=== PATIENT | male | born 1995 | race Caucasian/White ===

== ENCOUNTER 2024-05-09 05:17 | Observation (INO) | payer OTHER, SELFPAY ==
[2024-05-08 20:15] VITALS: BP 130/83
[2024-05-08 20:43] LABS: % Basophils 0.3 % (0-2); % Eosinophils 0.5 % (0-6); % Immature Granulocytes 0.6 % (0-0.5); % Lymphocytes 13.7 % (20.5-51.1); % Monocytes 6.7 % (1.7-9.3); % Neutrophils 78.2 % (42.2-75.2); Absolute Eosinophils 0.1 10^3/uL (0-0.7); Absolute Immature Granulocytes 0.1 10^3/uL (0-0.05); Absolute Lymphocytes 1.6 10^3/uL (1.2-3.4); Absolute Monocytes 0.8 10^3/uL (0.1-0.6); Absolute Neutrophils 8.9 10^3/uL (1.4-6.5); Hemoglobin 13.4 g/dL (13.0-18.0); Mean Corp Hgb Conc. 34.4 g/dL (33.0-37.0); Mean Corpuscular Hgb 29.5 pg (27.0-31.0); Mean Corpuscular Volume 85.9 fL (80.0-94.0); Mean Platelet Volume 11.3 fL (7.4-10.4); Nucleated Red Blood Cells % 0 % (-); Platelet Count 326 10^3/uL (130-400); Red Blood Cell Count 4.54 10^6/uL (4.70-6.10); Red Cell Dist. Width 12.4 % (11.5-14.5); White Blood Cell Count 11.4 10^3/uL (4.8-10.8)
[2024-05-08 21:00] LABS: ALT (SGPT) 73 U/L (0-50); AST (SGOT) 47 U/L (17-59); Albumin 4.7 g/dl (3.5-5.0); Alkaline Phosphatase 193 U/L (38-126); Blood Urea Nitrogen 18 mg/dl (9-20); Calcium 9.6 mg/dl (8.4-10.2); Carbon Dioxide 24 mmol/L (22-30); Chloride 100 mmol/L (98-107); Glucose 107 mg/dl (70-99); Potassium 4.2 mmol/L (3.5-5.1); Sodium 138 mmol/L (135-145); Total Bilirubin 1.2 mg/dl (0.2-1.3); Total Protein 7.7 g/dl (6.3-8.2); eGFR > 60.00
[2024-05-08 21:06] LABS: NT-proBNP 48.2 pg/ml
[2024-05-09 01:08] VITALS: BP 142/90; BMI 19.3
--- NOTE | 2024-05-09 01:47 | ED.GENMED ---
History of Present Illness
<Dawson Mendoza Jr., PA-C - Last Filed: 05/09/24 18:09>
General
Chief Complaint: Swelling
Source: patient and spouse
Exam Limitations: none
Time Seen by Provider: 05/09/24 01:22
Nursing documentation reviewed up to this point in time: agreed with
History of Present Illness
History of Present Illness:
28-year-old male past medical history of asthma presenting to the emergency department today with concerns of swelling redness warmth of the lower extremities bilaterally over the past few days seemingly worsening. Also has had some night sweats
over the last 2 weeks. Initially had what seemed to be a viral syndrome 2 weeks ago that seem to improve. Denies any chest pain shortness of breath does have some leg pain. Denies similar symptoms in the past. Did take some Motrin last week
denies any ongoing medication use. Denies any alcohol use
Review of Systems
<Dawson Mendoza Jr., PA-C - Last Filed: 05/09/24 18:09>
Review of Systems
Allergies reviewed?: Yes
All Other Systems: ROS reviewed and negative except as documented in HPI and ROS
Phy Exam
<Dawson Mendoza Jr., PA-C - Last Filed: 05/09/24 18:09>
Physical Exam
Physical Exam:
GENERAL: Alert , in no apparent distress
EYE: pupils equal and reactive
NECK: Supple, no significant adenopathy.
ENT: o/p clr, mmm.
CARDIAC: Regular rate and rhythm .
LUNGS: Clear breath sounds bilaterally, no acute respiratory distress, no wheezes/rales/rhonchi
ABDOMEN: Soft, without focal tenderness, no r/g, no cvat
NEUROLOGICAL: Alert and oriented, no focal neuro deficits
SKIN: Raised patches of red with some dark discoloration centrally bilaterally. Mild tenderness or induration does not cross the joint no changes in joint movement. Warm and dry, skin intact.
MUSCULOSKELETAL: No edema, well perfused.
PSYCH: Normal and appropriate interaction.
Sepsis
<Dawson Mendoza Jr., PA-C - Last Filed: 05/09/24 18:09>
Sepsis Screening
Sepsis Assessment: Sepsis Ruled Out
Sepsis Screen
Sepsis Screen: Sepsis Ruled Out
Date: 05/09/24
Time: 18:09
Course
<Dawson Mendoza Jr., PA-C - Last Filed: 05/09/24 18:09>
Orders/Labs/Results
Orders:
Orders
05/08/24 20:34
BNP [NT-proBNP] Urgent
CBC/With Diff [Complete Blood Count/With Diff] Urgent
CMP [Comprehensive Metabolic Panel] Urgent
Erythrocyte Sed Rate Urgent
Comment: ADD ON
05/09/24 02:07
Add On- LAB Urgent
Tests Added?: esr crp lyme progressive
Venous Doppler Lwr Ext Bilat [US Periph Venous LOWER Ext Kishor] Urgent
Comment:
Reason For Exam: leg swelling
05/09/24 02:08
CeFAZolin 1 GRAM [Ancef] 1 gram in 5 ml IV NOW
05/09/24 02:10
Lyme Progressive Urgent
Comment: ADD ON
05/09/24 02:12
CeFAZolin 1 GRAM [Ancef] 1 gram in 5 ml IV NOW
05/09/24 02:28
C-Reactive Protein Urgent
Comment: ADD ON
COVID-19 Antigen Urgent
Source: Nasal Swab
Monotest Urgent
Urinalysis Reflex To Culture Urgent
Date Specimen was Collected: 05/09/24
Time Specimen was Collected: 02:14
Blood Culture Q30M
FARA Source: Blood/Venous
Specimen Description:
Blood Culture Q30M
FARA Source: Blood/Venous
Specimen Description:
Influenza A+B Rapid Molecular Urgent
FARA Source: Nasal Swab
Specimen Description:
Rapid Strep Group A Urgent
FARA Source: Throat/Pharynx
Specimen Description:
Date Specimen was Collected: 05/09/24
Time Specimen was Collected: 02:13
05/09/24 04:47
Admit/Transfer Patient As Directed
Co-Sign Provider:
Level of Care: Observation services
Assign to:: Medical/Surgical
Physician / Group: hospitalist
Diagnosis: rash
PRN Pain Medication Management As Directed
May give lesser potent ordered pain med per pt: Yes
preference::
Protocol:: Medication orders for pain may be administered in a
manner that supports deferring to patient preference
when the pt is:
- Requesting an ordered lesser potent pain medication.
Least to most potent pain medications are defined
as: acetaminophen < NSAID < tramadol < opioids
(morphine, oxycodone, hydromorphone).
- Requesting a lesser dose of the same medication IF
ORDERED.
- Requesting a less intrusive route of administration
if both routes are prescribed by the provider (PO <
IV).
05/09/24 04:48
Code Status As Directed
Resuscitation Status: Full Code
05/09/24 05:20
Acetaminophen [Tylenol] 650 mg PO Q4HPRN PRN
Diphenhydramine [Benadryl] 25 mg IV Q4HPRN PRN
Ondansetron Injectable [Zofran] 4 mg IV Q6HPRN PRN
05/09/24 05:20
Consult Notification Routine
Specialty to Notify: Infectious Disease
Date consulting provider notified: 05/09/24
Time consulting provider notified: 11:18
Notified:: Provider
INFECTIOUS DISEASE CONSULT Routine
Consulting Provider: Wankewicz,Trang
Was physician already notified: No
Reason for consult: cellulitis, rash
Activity As Directed
Activity Level: With Assistance
Pneumatic Compression Sleeves As Directed
Type: Knee high
Vital Signs As Directed
Frequency: Per unit guidelines
Pulse Ox/spot Check [RESP] Routine
Quantity: 1
DX Deep Vein Thrombosis Video Routine
05/09/24 05:27
JUNE, IgG Reflex to HEp-2 [S] IN AM
Complete Blood Count/No Diff IN AM
Hepatitis A IgM Antibody IN AM
Hepatitis B Core Ab, IgM IN AM
Hepatitis B Surface Antibody IN AM
Hepatitis B Surface Antigen IN AM
Hepatitis C Antibody IN AM
Rheumatoid Factor [Rheumatoid Agglutinin] IN AM
05/09/24 Breakfast
Regular
At Your Request: Full Participation
Does patient need a safe tray?: No
Flush (0.9% Sodium Chloride) [Flush (Nss)] See Dose Instructions IV PER PROTOCOL
Abnormal Lab Results
05/08/24 05/09/24
20:34 02:28
WBC 11.4 H 10^3/uL
(4.8-10.8)
RBC 4.54 L 10^6/uL
(4.70-6.10)
MPV 11.3 H fL
(7.4-10.4)
Abs Immat Gran (auto) 0.1 H 10^3/uL
(0-0.05)
Absolute Neuts (auto) 8.9 H 10^3/uL
(1.4-6.5)
Absolute Monos (auto) 0.8 H 10^3/uL
(0.1-0.6)
Immature Gran % 0.6 H %
(0-0.5)
Neutrophils % 78.2 H %
(42.2-75.2)
Lymphocytes % 13.7 L %
(20.5-51.1)
ESR 72 H mm/hour
(0-20)
Glucose 107 H mg/dl
(70-99)
ALT 73 H U/L
(0-50)
Alkaline Phosphatase 193 H U/L
(38-126)
C-Reactive Protein 144.70 H mg/L
(0.0-10.00)
05/08/24 20:34
05/08/24 20:34
Vital Signs
Initial and Last Documented VS:
Initial Vital Signs
Temp Pulse Resp BP Pulse Ox
98.8 F 116 16 130/83 98
05/08/24 20:15 05/08/24 20:15 05/08/24 20:15 05/08/24 20:15 05/08/24 20:15
Last Documented Vital Signs
Temp Pulse Resp BP Pulse Ox
98.1 F 89 17 122/74 99
05/09/24 14:18 05/09/24 14:18 05/09/24 14:18 05/09/24 14:18 05/09/24 14:18
<Abdi Sebastian MD - Last Filed: 05/09/24 02:26>
Orders/Labs/Results
Orders:
Orders
05/08/24 20:34
BNP [NT-proBNP] Urgent
CBC/With Diff [Complete Blood Count/With Diff] Urgent
CMP [Comprehensive Metabolic Panel] Urgent
Erythrocyte Sed Rate Urgent
Comment: ADD ON
05/09/24 02:07
Add On- LAB Urgent
Tests Added?: esr crp lyme progressive
Venous Doppler Lwr Ext Bilat [US Periph Venous LOWER Ext Kishor] Urgent
Comment:
Reason For Exam: leg swelling
05/09/24 02:08
CeFAZolin 1 GRAM [Ancef] 1 gram in 5 ml IV NOW
05/09/24 02:10
Lyme Progressive Urgent
Comment: ADD ON
05/09/24 02:12
CeFAZolin 1 GRAM [Ancef] 1 gram in 5 ml IV NOW
05/09/24 02:28
C-Reactive Protein Urgent
Comment: ADD ON
COVID-19 Antigen Urgent
Source: Nasal Swab
Monotest Urgent
Urinalysis Reflex To Culture Urgent
Date Specimen was Collected: 05/09/24
Time Specimen was Collected: 02:14
Blood Culture Q30M
FARA Source: Blood/Venous
Specimen Description:
Blood Culture Q30M
FARA Source: Blood/Venous
Specimen Description:
Influenza A+B Rapid Molecular Urgent
FARA Source: Nasal Swab
Specimen Description:
Rapid Strep Group A Urgent
FARA Source: Throat/Pharynx
Specimen Description:
Date Specimen was Collected: 05/09/24
Time Specimen was Collected: 02:13
05/09/24 04:47
Admit/Transfer Patient As Directed
Co-Sign Provider:
Level of Care: Observation services
Assign to:: Medical/Surgical
Physician / Group: hospitalist
Diagnosis: rash
PRN Pain Medication Management As Directed
May give lesser potent ordered pain med per pt: Yes
preference::
Protocol:: Medication orders for pain may be administered in a
manner that supports deferring to patient preference
when the pt is:
- Requesting an ordered lesser potent pain medication.
Least to most potent pain medications are defined
as: acetaminophen < NSAID < tramadol < opioids
(morphine, oxycodone, hydromorphone).
- Requesting a lesser dose of the same medication IF
ORDERED.
- Requesting a less intrusive route of administration
if both routes are prescribed by the provider (PO <
IV).
05/09/24 04:48
Code Status As Directed
Resuscitation Status: Full Code
05/09/24 05:20
Acetaminophen [Tylenol] 650 mg PO Q4HPRN PRN
Diphenhydramine [Benadryl] 25 mg IV Q4HPRN PRN
Ondansetron Injectable [Zofran] 4 mg IV Q6HPRN PRN
05/09/24 05:20
Consult Notification Routine
Specialty to Notify: Infectious Disease
Date consulting provider notified: 05/09/24
Time consulting provider notified: 11:18
Notified:: Provider
INFECTIOUS DISEASE CONSULT Routine
Consulting Provider: Trang Fortune
Was physician already notified: No
Reason for consult: cellulitis, rash
Activity As Directed
Activity Level: With Assistance
Pneumatic Compression Sleeves As Directed
Type: Knee high
Vital Signs As Directed
Frequency: Per unit guidelines
Pulse Ox/spot Check [RESP] Routine
Quantity: 1
DX Deep Vein Thrombosis Video Routine
05/09/24 05:27
JUNE, IgG Reflex to HEp-2 [S] IN AM
Complete Blood Count/No Diff IN AM
Hepatitis A IgM Antibody IN AM
Hepatitis B Core Ab, IgM IN AM
Hepatitis B Surface Antibody IN AM
Hepatitis B Surface Antigen IN AM
Hepatitis C Antibody IN AM
Rheumatoid Factor [Rheumatoid Agglutinin] IN AM
05/09/24 Breakfast
Regular
At Your Request: Full Participation
Does patient need a safe tray?: No
Flush (0.9% Sodium Chloride) [Flush (Nss)] See Dose Instructions IV PER PROTOCOL
Abnormal Lab Results
05/08/24 05/09/24
20:34 02:28
WBC 11.4 H 10^3/uL
(4.8-10.8)
RBC 4.54 L 10^6/uL
(4.70-6.10)
MPV 11.3 H fL
(7.4-10.4)
Abs Immat Gran (auto) 0.1 H 10^3/uL
(0-0.05)
Absolute Neuts (auto) 8.9 H 10^3/uL
(1.4-6.5)
Absolute Monos (auto) 0.8 H 10^3/uL
(0.1-0.6)
Immature Gran % 0.6 H %
(0-0.5)
Neutrophils % 78.2 H %
(42.2-75.2)
Lymphocytes % 13.7 L %
(20.5-51.1)
ESR 72 H mm/hour
(0-20)
Glucose 107 H mg/dl
(70-99)
ALT 73 H U/L
(0-50)
Alkaline Phosphatase 193 H U/L
(38-126)
C-Reactive Protein 144.70 H mg/L
(0.0-10.00)
05/08/24 20:34
05/08/24 20:34
Vital Signs
Initial and Last Documented VS:
Initial Vital Signs
Temp Pulse Resp BP Pulse Ox
98.8 F 116 16 130/83 98
05/08/24 20:15 05/08/24 20:15 05/08/24 20:15 05/08/24 20:15 05/08/24 20:15
Last Documented Vital Signs
Temp Pulse Resp BP Pulse Ox
98.1 F 89 17 122/74 99
05/09/24 14:18 05/09/24 14:18 05/09/24 14:18 05/09/24 14:18 05/09/24 14:18
<Dawson Mendoza Jr., VINCENTC - Last Filed: 05/09/24 18:09>
MDM/Problems Addressed
MDM/Problems Addressed:
28-year-old male presenting to the emergency department with concerns of worsening rash to lower extremities. Had what was described as potential viral syndrome last week. On arrival here initially tachycardic but improving without specific
treatment. Slight white count on labs normal platelet count other labs without emergent findings. Unclear etiology of symptoms. Patient does have a warm red rash there was some degree of concern of infection was given dose of Ancef. Case seen by
attending physician recommending additional infectious disease evaluation and infectious disease consultation. Plan to admit for further assessment and monitoring.
<Dawson Mendoza Jr., PA-C - Last Filed: 05/09/24 18:09>
*Critical Care Note
Total Time (30-74mins, 75-104mins- exclusive of procedures): Not Applicable
<Abdi Sebastian MD - Last Filed: 05/09/24 02:26>
Update Note
Update Note:
ED Attending Note
<Dawson Mendoza Jr., PA-C - Last Filed: 05/09/24 18:09>
-
Portions of this chart may have been created with voice recognition software.� Occasional wrong word or��sound alike� substitutions may have occurred due to the inherent limitations of voice recognition software.
<Abdi Sebastian MD - Last Filed: 05/09/24 02:26>
ED Attending Note
Patient seen and examined by attending physician: Yes
ED Attending Note:
I have seen and evaluated the patient with a [id number] encounter. I have spoken to the advance practicer provider and involved in the medical history, the physical exam, medical decision making.
Evaluation and management service: agree unless noted differently below.
Results interpretation: agree unless noted differently below.
Focused HPI: 28-year-old male no significant chronic medical issues presents for evaluation of fevers and night sweats, swelling and discomfort in the legs as well as rash on the legs. Patient says that he has been having subjective fever and
chills, night sweats for 2 weeks. He says that last week he was managing with ibuprofen but towards the end of the week last week he started to develop swelling in the legs and he thought it could be related to ibuprofen and so he discontinued
this. He says he did have some mild URI symptoms to start last week. No cough, shortness of breath. No urinary symptoms. No GI symptoms. He says that over the past day or 2 started to develop a rash�dark spots purpleish red on palms,
shins/thighs bilaterally. Came to the emergency room for assessment. No recent bug bites. No recent travel. No new medications�only medication recently has been ibuprofen.
Physical exam: Awake alert not in distress. Tachycardic otherwise normal vitals�notably afebrile here. No cardiac rubs, gallops, murmurs. Lungs clear to auscultation bilaterally. TMs are clear bilaterally. No oral lesions, moist mucous
membranes, no erythema or exudate in the posterior oropharynx. His abdomen is nontender. On exam of his legs he has dark purpleish red patches scattered on anterior velazquez and thighs bilaterally; there is an area of confluent erythema and warmth,
tenderness as well as edema in the left ankle. He has some macules on the palms bilaterally, no spots on the soles of the feet noted. No involvement of the face, neck, torso. No wounds, scrapes, lacerations appreciated on skin exam. See attached
picture.
Medical Decision Makin-year-old male presents with rash, fever and night sweats for 2 weeks as described above. Vitals and exam as above. Differential would include vasculitis, postviral rash, erythema nodosum/multiforme, tickborne illness,
cellulitis. His labs show no signs of thrombocytopenia, marginal leukocytosis 11.4. CMP no clinically significant abnormalities. Will send test for tickborne illness, inflammatory markers, Monospot, COVID, flu. Check ultrasound of the leg given
asymmetric swelling and confluent erythema in the left side. Will plan to likely admit for ID consultation given persistent fevers and night sweats x 2 weeks.
Discharge Plan
Departure
Patient Disposition: Admit
Date of Disposition: 05/09/24
Time of Disposition: 02:50
Admit to: Med/Surg
Admit to doctor: Kayla
Presentation/result/management discussed w/ accepting MD/DO: Hospitalist
Patient with high blood pressure during this ER visit?: No
Condition: Good
Covid-19: Not Applicable
Discharge Problem:
Rash
Interventions
Interventions:
*Risk Screen - Suicide Last Done: 05/08/24 20:15
*General Assessment Last Done: 05/09/24 12:00
*Neglect/Abuse Screening Last Done: 05/08/24 20:15
*ED- Fall Risk Assessment Last Done: 05/09/24 01:57
*ED COVID-19 Vaccine History Last Done: 05/09/24 12:33
*Nursing Disposition Last Done: 05/09/24 12:00
ED- Cardiac Assessment Last Done: 05/09/24 01:19
ED- Pulmonary Assessment Last Done: 05/09/24 01:19
ED-Skin Assessment Last Done: 05/09/24 01:19
Discharge Date and Time
Discharge Date/Time: 05/09/24 12:01
[2024-05-09] MEDS: ANCEF 5 IV (02:48)
[2024-05-09 03:00] LABS: Urine Bilirubin Negative (Negative); Urine Character Clear (Clear); Urine Color Yellow; Urine Glucose Negative (Negative); Urine Ketone Negative (Negative); Urine Leukocyte Negative (Negative); Urine Nitrite Negative (Negative); Urine Occult Blood Negative (Negative); Urine Urobilinogen Negative (Neg - 1+)
[2024-05-09 03:04] LABS: COVID-19 Antigen Negative (Negative); Monotest Negative (Negative)
[2024-05-09 03:13] LABS: Urine Albumin Trace (Neg - Trace)
[2024-05-09 03:26] LABS: Erythrocyte Sed Rate 72 mm/hour (0-20)
--- NOTE | 2024-05-09 04:28 | HPS.HSE ---
Family Physician
-
Family Physician: * NONE
Chief Complaint
-
Leg redness and swelling
History of Present Illness
This is a 28-year-old male without any known significant past medical history who presents to the emergency department with lower extremity rash.
Patient reported that about 1 week ago he developed swelling and some pain in his bilateral ankles. He was doing some squats before onset of the symptoms. However after development of the swelling around the ankles he started having intermittent
fevers and night sweats for a few days. He then started taking room ibuprofen. He took the ibuprofen continuously for about 3 or 4 days. He defervesced but during this. He started noticing increasing redness in his lower extremities bilaterally.
There was redness around the ankle as well as spots throughout his legs up to his thighs bilaterally. He denies any rash on his trunk or arms or face. He denies any tenderness to these lesions. He denies any pruritus. He denies taking any other
medications. He denies any ingestions. He denies any pain in his other joints besides the ankle. Patient denies any nausea or vomiting. He denies feeling dizzy or lightheaded. He denies any urinary symptoms including dysuria or hematuria. No
history of STDs. He denies any insect exposures.
In the emergency department he was afebrile, blood pressure was 140/90 with a pulse of 106. CBC notable for white count of 11.4 but otherwise unremarkable. Electrolytes BUN/creatinine were all within the normal range. Ultrasound of the lower
extremity was negative for DVT. He did have mild elevations in ALT to 73 and alk phos . COVID was negative, influenza was negative, inflammatory markers ESR was 72 and CRP 144.
Medical History
Past Medical History
Past Medical History: Reports None
Past Surgical History: Reports None
Social History
Tobacco: Non-smoker
Alcohol: Occasional
Drug: None
Employment: Employed
Family History
Family History: Not pertinent
Allergies / Home Medications
Allergies reflects when Allergies were last updated in [facility].
Home Medications with original date entered in [facility]
Allergy/Medication List:
Allergies
Allergy/AdvReac Type Severity Reaction Status Date / Time
No Known Allergies Allergy Verified 05/09/24 01:08
Home Medications
No Meds [No Current Medications] 05/09/24
Review of Systems
-
Constitutional: Reports No Symptoms
EENT: Reports No Symptoms
Respiratory: Reports No Symptoms
Cardiac: Reports No Symptoms
: Reports No Symptoms
Musculoskeletal: Reports Joint Pain and Joint Swelling
Skin: Reports Rash
Neurological: Reports No Symptoms
Endocrine: Reports No Symptoms
Hematologic/Lymphatic: Reports No Symptoms
Psych: Reports No Symptoms
Physical Exam
Vital Signs
Vital Signs
Temp Pulse Resp BP Pulse Ox
98.5 F 106 16 142/90 99
05/09/24 01:08 05/09/24 01:08 05/09/24 03:36 05/09/24 01:08 05/09/24 01:08
Physical Exam
General: Well Developed, Well Nourished, No Apparent Distress and Comfortable
HEENT: NormoCephalic, Anicteric, Moist mucous membranes and Atraumatic
Respiratory: Clear
Cardiac: S1/S2 and Regular Rhythm
GI: Soft, Non Tender and Non Distended
Rectal: Deferred by Provider
Genito-urinary: Deferred by me
Musculoskeletal: No Clubbing, No Cyanosis and No Edema
Skin: Rash (blanching erythematous patches around the ankles bilaterally, mulitiple circular macular nodules in the legs bilaterally)
Neuro: AO x 3 and Nonfocal/grossly intact
Hematologic/Lymphatic: No Lymphadenopathy
Psych: Calm
Laboratory Results
-
05/08/24 20:34
05/08/24 20:34
Laboratory Results
Total Bilirubin 1.2 mg/dl (0.2-1.3) 05/08/24 20:34
AST 47 U/L (17-59) 05/08/24 20:34
ALT 73 U/L (0-50) H 05/08/24 20:34
Alkaline Phosphatase 193 U/L (38-126) H 05/08/24 20:34
Data Reviewed
-
Lab Data: Labs Reviewed by me
Old Records: Reviewed
Impression/Plan
-
IMPRESSION:
28 y.o w/o past medical history here with episdoe of nightsweats and fevers followed by a non-pruritic erythematous macular spots of about 1 cm diameters in the lower extremities. Mild ankle swelling but no other joint findings. No pruritus. Labs
notable for elevated inflammatory markers. U/A is negative for blood. Negative strep throat. Negative covid/flu. Lyme pending. Currently afebrile, hemodynamically stable and well appearing. Given abx in ED for possible cellulitis and request
admission for ID eval.
PLAN:
Rash -suspect this is either drug eruption or erythema multiforme (no target lesions seen) secondary to NSAIDs. Unlikely SJS. No mucosal lesions, HD stable. Most common drug associated with EM are NSAIDs. Noted to have slight elevation in LFTs.
- admit to med/surg obs
- hold abx for now
- blood cultures and lyme titers pending
- check acute hepatitis panel
- consider skin biopsy
- ID consultation
- prn benadryl for itching
- given elevated esr/crp, check RF, JUNE
DVT PPX - SCDs
Code Status - Full Code
[2024-05-09 05:45] LABS: Hematocrit 34.2 % (39.0-52.0); Hemoglobin 11.8 g/dL (13.0-18.0); Mean Corp Hgb Conc. 34.5 g/dL (33.0-37.0); Mean Corpuscular Hgb 29.6 pg (27.0-31.0); Mean Corpuscular Volume 85.7 fL (80.0-94.0); Mean Platelet Volume 11.4 fL (7.4-10.4); Platelet Count 300 10^3/uL (130-400); Red Blood Cell Count 3.99 10^6/uL (4.70-6.10); Red Cell Dist. Width 12.4 % (11.5-14.5); White Blood Cell Count 9.7 10^3/uL (4.8-10.8)
[2024-05-09 06:05] LABS: ALT (SGPT) 70 U/L (0-50); AST (SGOT) 45 U/L (17-59); Alkaline Phosphatase 171 U/L (38-126); Blood Urea Nitrogen 18 mg/dl (9-20); Calcium 9.6 mg/dl (8.4-10.2); Carbon Dioxide 25 mmol/L (22-30); Chloride 101 mmol/L (98-107); Direct Bilirubin 0.2 mg/dl (0.0-0.4); Estimated Creatinine Clearance 99 ml/min; Glucose 111 mg/dl (70-99); Potassium 3.7 mmol/L (3.5-5.1); Sodium 138 mmol/L (135-145); Total Protein 6.7 g/dl (6.3-8.2); eGFR > 60.00
[2024-05-09 06:34] LABS: Hepatitis B Surface Antigen Negative (Negative)
[2024-05-09 06:40] LABS: Hepatitis A IgM Antibody Negative (Negative); Hepatitis B Core Ab, IgM Negative (Negative)
[2024-05-09 06:52] LABS: Hepatitis B Surface Antibody Positive; Hepatitis C Antibody Negative (Negative)
--- NOTE | 2024-05-09 11:43 | CON.ID ---
Consultation
-
Date/Time Consultation Requested: 05/09/24 5:20
Date/Time Consultation Performed: 05/09/24 11:44
Requesting Provider: Dr Garza
Performing Provider: Dr Fortune
Reason for Consultation: cellulitis, rash
Chief Complaint / Past History
Chief Complaint
Leg redness and swelling
History of Present Illness
Mr Maurice is a 28 year old male without significant past medical history who presented here late last night for about a 1 week history of swelling and pain in the bilateral ankles, which progressed to several days of fevers and night sweats, he began
taking ibuprofen and then redness in the distal then later proximal lower extremities, there are also lesions on the palms. Rash is not tender or pruritic. Rash does not involve the trunk. No OTC medications. No nausea, vomiting, dizziness,
dysuira or history of STIs. No insect bites. They both have extensive contact with small children through their extended family. Has been monogamous for at least 6 years.
In the ER he was afebrile, bp 140/90, HR 106, WBC 11.4 initially today 9.7, hgb 11.8, plt 300, L shift was noted, eos remained present, cr 1.0, crp 144, t bili 1.0, ast 45, alt 70, alk phos 171, ua no pyuria, RF and JUNE were sent and are in
progress, covid negative, viral hep screen consistent with vaccination for hep B, lyme serology also sent in progress, abd US: no cholelithiasis, peripheral vascular US: no DVT, blood cultures x2 are in progress, influenza neg, strep screen
negative.
Patient reports that since admission his rash is notably less erythematous. Not tender. Ankle pain improving.
Past History
Past Medical History: None
Past Surgical History: None
Allergy History:
No Known Allergies Allergy (Verified 05/09/24 01:08)
Medications Reviewed: Yes
Social History
Tobacco: Non-Smoker
Alcohol: Occasional
Drug: None
Family History
Family History: Not Pertinent
Review of Systems
Review of Systems
General: Negative Fever or Chills
All systems: All other systems were reviewed and were negative
Vital Signs
Temp Pulse Resp BP Pulse Ox
98.5 F 106 18 142/90 99
05/09/24 01:08 05/09/24 01:08 05/09/24 05:34 05/09/24 01:08 05/09/24 05:34
Physical Exam
Physical Exam
Constitutional: No Acute Distress
Cardiovascular: Regular Rate and S1/S2; Negative Murmur or Rub
Pulmonary: Clear and Symmetric; Negative Wheezes, Rales or Rhonchi
Gastrointestinal: Soft, Non Tender, Non Distended and Normal Bowel Sounds
Skin: Warm, Dry and Rash (blanching, macular rash including the palms and lower extremites); Negative Jaundice
Lab / Diagnostic Study Results
05/09/24 05:27
05/09/24 05:27
Abs Immat Gran (auto) 0.1 10^3/uL (0-0.05) H 05/08/24 20:34
Absolute Neuts (auto) 8.9 10^3/uL (1.4-6.5) H 05/08/24 20:34
Absolute Lymphs (auto) 1.6 10^3/uL (1.2-3.4) 05/08/24 20:34
Absolute Monos (auto) 0.8 10^3/uL (0.1-0.6) H 05/08/24 20:34
Absolute Basos (auto) 0.0 10^3/uL (0-0.2) 05/08/24 20:34
Immature Gran % 0.6 % (0-0.5) H 05/08/24 20:34
Neutrophils % 78.2 % (42.2-75.2) H 05/08/24 20:34
Lymphocytes % 13.7 % (20.5-51.1) L 05/08/24 20:34
Monocytes % 6.7 % (1.7-9.3) 05/08/24 20:34
Eosinophils % 0.5 % (0-6) 05/08/24 20:34
Basophils % 0.3 % (0-2) 05/08/24 20:34
ESR 72 mm/hour (0-20) H 05/08/24 20:34
C-Reactive Protein 144.70 mg/L (0.0-10.00) H 05/09/24 02:28
Microbiology Results
Micro:
05/09/24 02:28 Influenza Types A & B (MICHAEL) - Final
Nasal Swab Negative for Influenza A & B, NAAT
Negative results must be combined with clinical observations
and patient history.
Nucleic Acid Amplification test (NAAT)performed on the
[employer] platform.
05/09/24 02:28 Streptococcus Screen ([facility]ARA) - Pending
Throat/Pharynx Streptococcus Rapid Screen - Final
Rapid Strep Screen (Group A) Negative
05/09/24 02:28 Blood Culture - Pending
Blood/Venous
05/09/24 02:28 Blood Culture - Pending
Blood/Venous
Assessment / Plan
Blanching Macular Rash with palmar involvement
- agree erythema multiforme on the differential - could be related to recent ibuprofen
- syphilis - screen ordered
- HIV screen
- gc/chlamydia on the urine
- blood cultures x2 are in progress
- lyme screen in progress
- given that rash blanches unlikely RMSF
- serologies c/w previous vaccination to hep B
- RF and JUNE pending
- viral syndromes such as parvovirus, cocksackie virus also possible, management would be supportive
- do not recommend antibiotics at this time, I will follow up the pending labs that I ordered
- follow up with PCP and/or dermatology
[2024-05-09 12:17] VITALS: BP 120/76
[2024-05-09 12:53] VITALS: BMI 19.0
--- NOTE | 2024-05-09 12:59 | TRANSFER ---
Pt arrives from [facility], walked over onto hospital bed. pt aaox3, vss, spouse accompanying pt. pt reports eating lunch already. pt oriented to unit, admission and assessment completed. call alfonso in reach. plan of care continues to be followed.
--- NOTE | 2024-05-09 14:12 | W.DCSUMMARY ---
Discharge Summary
Discharge Data
Date of Admission: 05/09/24
Date of Discharge: 05/09/24
-
Pending Results: Yes
Additional Pending Results:
STD testing
Hospital Course
Presented with bilateral lower extremity atypical rash that was described as pressure-like sensation when the rash pops up in a new area. Initially started off in the ankles then spread approximately. Now also affecting the palms in the arms.
Initially provided IV antibiotics in the ED. Was evaluated by infectious disease who did not believe antibiotics were required. Pictures were sent to dermatology which recommended to initiate prednisone 40 to 60 mg daily until seen in the office.
Office visit with dermatology has been set up on May 12. If worsening or changes in manifestations and return to the hospital or call on-call dermatology for further recommendations and advice.
Seen and examined the day of discharge. No new complaints. No acute overnight events.
NAD
Scleral Anicteric, corrective lens
MMM
No JVD
CTABL
RRR, S1/S2
Soft, NT, ND, BS+
Warm, Dry
Bilateral lower extremity demonstrating diffuse nonblanching erythematic slightly raised lesions without scaling drainage additionally also note on bilateral palms and forearms, worse over the left ankle
AAOx3
Calm
Discharge Plan
-
Patient Disposition: Home (Routine Discharge)
Discharge Diagnosis/Procedures: Atypical rash
Condition: Good
Diet: As tolerated
Activity: As tolerated
Activity Restrictions/Additional Instructions:
Presented with bilateral lower extremity atypical rash that was described as pressure-like sensation when the rash pops up in a new area. Initially started off in the ankles then spread approximately. Now also affecting the palms in the arms.
Initially provided IV antibiotics in the ED. Was evaluated by infectious disease who did not believe antibiotics were required. Pictures were sent to dermatology which recommended to initiate prednisone 40 to 60 mg daily until seen in the office.
Office visit with dermatology has been set up on May 12. If worsening or changes in manifestations and return to the hospital or call on-call dermatology for further recommendations and advice.
Additionally, noted a slight increase in liver function. [place] negative, hepatitis negative.
Abdominal ultrasound
IMPRESSION:
There is no sonographic evidence of cholelithiasis, acute cholecystitis or biliary duct dilation.
Stand Alone Forms: Return to Work
Referrals:
NONE,* [Family Provider] -
Colette Sierra MD [Consulting Staff] - 05/12/24
Prescriptions:
New
prednisone 50 mg tablet
50 mg PO DAILY 5 Days Qty: 5 0RF
Discharge Orders:
Discharge Patient (As Directed); Ordered 05/09/24
Ordered By: Lico Garcia
Discharge Date and Time
Print Language: UKRAINIAN
[2024-05-09 14:18] VITALS: BP 122/74
--- NOTE | 2024-05-09 15:04 | CM ---
CM reviewed medical records. Plan for discharge to home with no needs. Patient will follow up with PCP.
PLAN: home no needs.
[2024-05-09 15:21] LABS: HIV Combo Negative (Negative)
[2024-05-11 02:13] LABS: ANA, IgG Reflex to HEp-2 None Detected (None Detected)
[2024-05-12 13:26] LABS: Lyme Antibody Screen, EIA Negative (Negative)
[2024-05-12 14:41] LABS: Rheumatoid Agglutinin Less Than 10 IU (<10 IU)
== END 2024-05-09 15:00 | disposition home or self-care (01) ==
LOC: 1 ACUTE 05:17
PROVIDERS: Student in an Organized Health Care Education/Training Program; ADMITTING PHYSICIAN Internal Medicine; ATTENDING PHYSICIAN Hospitalist; CONSULT PHYSICIAN Student in an Organized Health Care Education/Training Program; EMERGENCY PHYSICIAN Emergency Medicine
DX: R21 Rash and other nonspecific skin eruption (principal); M25.471 Effusion, right ankle; M25.472 Effusion, left ankle; J45.909 Unspecified asthma, uncomplicated; R61 Generalized hyperhidrosis; R00.0 Tachycardia, unspecified; R50.9 Fever, unspecified; R70.0 Elevated erythrocyte sedimentation rate; M79.89 Other specified soft tissue disorders; R74.01 Elevation of levels of liver transaminase levels; Z11.52 Encounter for screening for COVID-19
CPT/HCPCS: 76700; 80053; 81003; 82248; 83880; 85025; 85027; 85652; 86038; 86140; 86308; 86430; 86618; 86705; 86706; 86709; 86780; 86803; 87040; 87070; 87340; 87389; 87491; 87502; 87591; 87811; 87880; 93970; 96374; 99285; G0378